=== PATIENT | male | born 1955 | race Caucasian/White ===

== ENCOUNTER 2023-09-13 09:27 | Outpatient (CLI) | payer MEDICARE, SELFPAY ==
[2023-09-13 10:29] LABS: Cholesterol 164 mg/dL (0-200); HDL Direct 67 mg/dL; Triglycerides 81 mg/dL (<150)
[2023-09-13 10:40] LABS: LDL Cholesterol Direct 85 mg/dL
== END 2023-09-13 09:28 | disposition home or self-care (01) ==
PROVIDERS: PCP Emergency Medicine; Visit Provider Internal Medicine Cardiovascular Disease
DX: I25.10 Atherosclerotic heart disease of native coronary artery without angina pectoris (principal); Z95.5 Presence of coronary angioplasty implant and graft; E78.5 Hyperlipidemia, unspecified; B18.2 Chronic viral hepatitis C; I10 Essential (primary) hypertension
CPT/HCPCS: 36415; 80061